=== PATIENT | female | born 1985 | race American Indian/Alaskan Native ===

== ENCOUNTER 2016-11-16 15:54 | Emergency (ER) | payer OTHER ==
[2016-11-16 16:21] VITALS: BMI 25.9
[2016-11-16 16:26] VITALS: BP 114/81; PULSE 64; RESP 19; TEMP 98.1; O2SAT 99
[2016-11-16] MEDS ORDERED: Naproxen 550 mg Tab PO STA (16:30)
--- NOTE | 2016-11-16 17:24 | ED PDOC ---
Arrival/HPI - General Chief Complaint: Trauma Time Seen by Provider: 11/16/16 16:30 Historian: Patient - History of Present Illness Narrative History of Present Illness (Text): 11/16/16 17:20 Patient reports injuring her right knee when she fell on November 10. She has been taking and applying [id number] pain reliever with no relief prompting ER visit. Otherwise: (-) "pop", (-) instability, (-) other injury. Has no history of prior knee injury. PMD Jade Past Medical History - Provider Review Nursing Documentation Reviewed: Yes - Infectious Disease Hx of Infectious Diseases: None - Tetanus Immunization Tetanus Immunization: Unknown - Past Medical History Past Medical History: No Previous - Cardiac Hx Cardiac Disorders: No Hx Hypertension: No - Pulmonary Hx Tuberculosis: No - Neurological HX Cerebrovascular Accident: No Hx Seizures: No - Hematological/Oncological Hx Cancer: No - Musculoskeletal/Rheumatological Hx Musculoskeletal Disorders: No - Genitourinary/Gynecological Hx Sexually Transmitted Diseases: No - Psychiatric Hx Psychophysiologic Disorder: No Hx Substance Use: No - Past Surgical History Past Surgical History: No Previous - Anesthesia Hx Anesthesia: No - Suicidal Assessment Feels Threatened In Home Enviroment: No Family/Social History - Physician Review Nursing Documentation Reviewed: Yes Family/Social History: No Known Family HX Smoking Status: Never Smoked Hx Alcohol Use: Yes Frequency of alcohol use: Socially Hx Substance Use: No Allergies/Home Meds Allergies/Adverse Reactions: Allergies Penicillins Allergy (Verified 11/16/16 16:20) RASH Home Medications: Home Meds Medication Instructions Recorded Confirmed Acetaminophen [Tylenol 325mg tab] 650 mg PO PRN PRN 11/16/16 11/16/16 Review of Systems - Review of Systems Constitutional: Normal. absent: Fatigue, Weight Change, Fevers Musculoskeletal: Normal, Arthralgias. absent: Back Pain, Neck Pain Skin: Normal. absent: Rash, Pruritis, Skin Lesions Physical Exam - Physical Exam Narrative Physical Exam (Text): 11/16/16 17:24 GENERAL APPEARANCE: Patient is awake, alert, oriented x 3, in no acute distress. SKIN: Warm, dry; (-) cyanosis. LOWER EXTREMITY: Mild tenderness of anterior right knee with no effusion. Able to extend actively to 0 degrees; (-) instability on valgus or varus stress. Drawer sign (-). (-) distal neurovascular deficit. 2 point discrimination. Hip, thigh, leg and ankle: (-) tenderness or limitation of motion. Vital Signs Temp Pulse Resp BP Pulse Ox 11/16/16 16:24 98.1 F 64 19 114/81 99 Medical Decision Making ED Course and Treatment: 11/16/16 17:25 31 yo F presents with right knee pain status post fall November 10. X-ray of right knee ordered. XR right knee: Soft tissue swelling noted, no fracture, no dislocation, as read by PA Patient advised that official radiology read of XR is still pending and will call the patient if there is any discrepancy within 24 hours. X-ray results discussed with the patient in great detail. Scotty wrap and knee immobilizer applied to the right knee. Patient instructed in crutch walking. Based on history, exam and diagnostic results plan will be for outpatient follow -up with PMD and orthopedic referral provided. Patient states she fully agrees with and understands discharge instructions. States that she agrees with the plan and disposition. Verbalized and repeated discharge instructions and plan. I have given the patient opportunity to ask any additional questions. Follow up with primary care physician or orthopedic referral provided in 1-2 days without fail. Return to the emergency room at any time for any new or worsening symptoms. - RAD Interpretation Radiology Orders: 11/16/16 16:30 KNEE RIGHT 2 VIEWS (AP & LAT) [RAD] Stat - Medication Orders Current Medication Orders: Discontinued Medications Naproxen (Anaprox Ds) 550 mg PO ONCE STA Stop: 11/16/16 16:31 Last Admin: 11/16/16 16:47 Dose: Not Given Non-Admin Reason: Patient Refused - PA / LOSS PREVENTION AGENT / Resident Statement /DO has reviewed & agrees with the documentation as recorded. Disposition/Present on Arrival - Present on Arrival Any Indicators Present on Arrival: No History of DVT/PE: No History of Uncontrolled Diabetes: No Urinary Catheter: No History of Decub. Ulcer: No History Surgical Site Infection Following: None - Disposition Have Diagnosis and Disposition been Completed?: Yes Diagnosis: Knee sprain Disposition: HOME/ ROUTINE Disposition Time: 17:15 Patient Plan: Discharge Condition: GOOD Discharge Instructions (ExitCare): Knee Sprain (ED) Print Language: LAO Additional Instructions: Thank you for letting us take care of you today. You were treated for right knee sprain. The emergency medical care you received today was directed at your acute symptoms. Rest, ice and elevate affected knee. Continue taking over-the- counter pain medications as needed for pain. It may take several days for your symptoms to resolve. Return to the Emergency Department if your symptoms worsen , do not improve, or if you have any other problems. Please contact your doctor in 2 days for re-evaluation and follow up / or call one of the physicians/clinics you have been referred to that are listed on the Patient Visit Information form that is included in your discharge packet. Bring any paperwork you were given at discharge with you along with any medications you are taking to your follow up visit. Our treatment cannot replace ongoing medical care by a primary care provider (PCP) outside of the emergency department. Thank you for allowing the [facility] team to be part of your care today. Referrals: Richard Hansen MD [Primary Care Provider] - Follow up with primary [facility] [place]] - Follow up with primary
--- NOTE | 2016-11-16 17:25 | RAD ---
PROCEDURE: Right Knee Radiographs. HISTORY: pain COMPARISON: None. FINDINGS: BONES: Normal. No fracture. JOINTS: Normal. No osteoarthritis. JOINT EFFUSION: None. OTHER FINDINGS: None. IMPRESSION: Normal radiographs of the right knee.
== END 2016-11-16 17:42 | disposition home or self-care (01) ==
LOC: ED 15:54
DX: S83.91XA Sprain of unspecified site of right knee, initial encounter (principal); W19.XXXA Unspecified fall, initial encounter; Y92.9 Unspecified place or not applicable

== ENCOUNTER 2017-08-03 16:49 | Emergency (ER) | payer MEDICAID, OTHER ==
[2017-08-03 17:03] VITALS: BMI 26.6
[2017-08-03 17:55] LABS: INFLUENZA A B NEGATIVE FOR FLU A/B (NEGATIVE)
--- NOTE | 2017-08-03 17:59 | ED PDOC ---
Arrival/HPI - General Chief Complaint: Flu-like Symptoms Time Seen by Provider: 08/03/17 17:04 Historian: Patient - History of Present Illness Narrative History of Present Illness (Text): 08/03/17 17:57 32yo female with no PMHx present with compliant of sore throat, cough and fever x 2days. states she had similar symptoms 2weeks ago and it resolved without medication and started gain 2days ago. Denies chest pain, SOb, diaphoresis, abdominal pain, sick contact, travel. Past Medical History - Provider Review Nursing Documentation Reviewed: Yes - Infectious Disease Hx of Infectious Diseases: None - Tetanus Immunization Tetanus Immunization: Unknown - Past Medical History Past Medical History: No Previous - Cardiac Hx Cardiac Disorders: No Hx Hypertension: No - Pulmonary Hx Tuberculosis: No - Neurological HX Cerebrovascular Accident: No Hx Seizures: No - Hematological/Oncological Hx Cancer: No - Musculoskeletal/Rheumatological Hx Musculoskeletal Disorders: No - Genitourinary/Gynecological Hx Sexually Transmitted Diseases: No - Psychiatric Hx Psychophysiologic Disorder: No Hx Substance Use: No - Past Surgical History Past Surgical History: No Previous - Anesthesia Hx Anesthesia: No - Suicidal Assessment Feels Threatened In Home Enviroment: No Family/Social History - Physician Review Nursing Documentation Reviewed: Yes Family/Social History: Unknown Family HX Smoking Status: Never Smoked Hx Alcohol Use: Yes Frequency of alcohol use: Socially Hx Substance Use: No Allergies/Home Meds Allergies/Adverse Reactions: Allergies Penicillins Allergy (Verified 11/16/16 16:20) RASH Home Medications: Home Meds Medication Instructions Recorded Confirmed Acetaminophen [Tylenol 325mg tab] 650 mg PO PRN PRN 11/16/16 11/16/16 Review of Systems - Physician Review All systems were reviewed & negative as marked: Yes - Review of Systems Constitutional: Fevers Eyes: Normal ENT: Sore Throat Respiratory: Cough Cardiovascular: Normal Gastrointestinal: Normal Genitourinary Female: Normal Musculoskeletal: Normal Skin: Normal Neurological: Normal Endocrine: Normal Hemo/Lymphatic: Normal Psychiatric: Normal Physical Exam Vital Signs Reviewed: Yes Vital Signs Temp Pulse Resp BP Pulse Ox 08/03/17 18:14 100.2 F H 89 20 108/74 100 08/03/17 16:49 100.7 F H 94 H 18 111/77 98 Temperature: Febrile Blood Pressure: Normal Pulse: Regular Respiratory Rate: Normal Appearance: Positive for: Well-Appearing, Non-Toxic, Comfortable Pain Distress: None Mental Status: Positive for: Alert and Oriented X 3 - Systems Exam Head: Present: Atraumatic, Normocephalic Pupils: Present: PERRL Extroacular Muscles: Present: EOMI Conjunctiva: Present: Normal Mouth: Present: Moist Mucous Membranes Pharnyx: Present: ERYTHEMA. No: EXUDATE, TONSILS ENLARGED, Peritonsilar Swelling, Uvular Deviation, Muffled/Hoarse Voice, Strider Neck: Present: Normal Range of Motion Respiratory/Chest: Present: Clear to Auscultation, Good Air Exchange. No: Respiratory Distress, Accessory Muscle Use, Wheezes, Decreased Breath Sounds, Rales, Retracting, Rhonchi, Tachypneic Cardiovascular: Present: Regular Rate and Rhythm, Normal S1, S2. No: Murmurs Abdomen: Present: Normal Bowel Sounds. No: Tenderness, Distention, Peritoneal Signs Back: Present: Normal Inspection Upper Extremity: Present: Normal Inspection. No: Cyanosis, Edema Lower Extremity: Present: Normal Inspection. No: Edema Neurological: Present: GCS=15, CN II-XII Intact, Speech Normal Skin: Present: Warm, Dry, Normal Color. No: Rashes Psychiatric: Present: Alert, Oriented x 3, Normal Insight, Normal Concentration Medical Decision Making ED Course and Treatment: 08/04/17 01:04 Pt in ED for stated history. Rapid Flu/strep was negative. Result was DW the pt. she was placed on Zpack. Referred to her PMd. Advised TRT ED for any new symptoms. - Lab Interpretations Lab Results: Lab Results 08/03/17 17:15: Influenza Typ A,B (EIA) Negative for flu a/b, Grp A Beta Strep Ag Negative - Medication Orders Current Medication Orders: Discontinued Medications Azithromycin (Zithromax) 500 mg PO STAT STA PRN Reason: Protocol Stop: 08/03/17 17:57 Last Admin: 08/03/17 18:05 Dose: 500 mg Benzonatate (Tessalon Perles) 100 mg PO ONCE STA Stop: 08/03/17 17:58 Last Admin: 08/03/17 18:06 Dose: 100 mg Ibuprofen (Motrin Tab) 600 mg PO STAT STA Stop: 08/03/17 17:05 Last Admin: 08/03/17 17:18 Dose: 600 mg MAR Pain/Vitals Document 08/03/17 17:18 SRE (Rec: 08/03/17 17:18 SRE [id number]) Pain Reassessment Is This A Pain ReAssessment? Yes Sleep Is patient sleeping during reassessment? No Presence of Pain Presence of Pain Yes Pain Scale Used Pain Scale Used Numeric Disposition/Present on Arrival - Present on Arrival Any Indicators Present on Arrival: No History of DVT/PE: No History of Uncontrolled Diabetes: No Urinary Catheter: No History of Decub. Ulcer: No History Surgical Site Infection Following: None - Disposition Have Diagnosis and Disposition been Completed?: Yes Diagnosis: URI (upper respiratory infection) Disposition: HOME/ ROUTINE Disposition Time: 18:05 Patient Plan: Discharge Condition: STABLE Discharge Instructions (ExitCare): Upper Respiratory Infection (ED) Additional Instructions: Follow up with your Doctor Drink plenty of fluid and rest Return to ED for any new or worsening symptoms Prescriptions: Azithromycin [Zithromax] 250 mg PO DAILY #4 tab Benzonatate [Tessalon Perles] 100 mg PO TID #20 sgl Referrals: Omar Gonzalez, [Primary Care Provider] - Follow up with primary Forms: [employer] (Luxembour[place])
[2017-08-03 18:16] VITALS: BP 108/74; PULSE 89; RESP 20; TEMP 100.2; O2SAT 100
== END 2017-08-03 18:16 | disposition home or self-care (01) ==
LOC: ED 16:49
DX: J06.9 Acute upper respiratory infection, unspecified (principal)

== ENCOUNTER 2017-12-16 15:07 | Emergency (ER) | payer MEDICAID, OTHER ==
[2017-12-16 15:08] VITALS: BMI 25.9
[2017-12-16 16:43] VITALS: TEMP 97.7
--- NOTE | 2017-12-16 17:51 | ED PDOC ---
Arrival/HPI - General Chief Complaint: Upper Extremity Problem/Injury Time Seen by Provider: 12/16/17 15:40 Historian: Patient - History of Present Illness Narrative History of Present Illness (Text): 12/16/17 17:48 Patient is a 32 year old female who presents to the Emergency department complaining of intermittent right wrist pain, which started several months ago. Patient reports that she hasn't previously injured her wrist, and mentions her pain is alleviated with Advil. Patient denies fevers, chills, cough, chest pain , dyspnea on exertion, headache, dizziness, or any other complaint. Time/Duration: > month Symptom Course: Intermittent Context: Home Past Medical History - Provider Review Nursing Documentation Reviewed: Yes - Infectious Disease Hx of Infectious Diseases: None - Tetanus Immunization Tetanus Immunization: Unknown - Past Medical History Past Medical History: No Previous - Cardiac Hx Cardiac Disorders: No Hx Hypertension: No - Pulmonary Hx Tuberculosis: No - Neurological HX Cerebrovascular Accident: No Hx Seizures: No - Hematological/Oncological Hx Cancer: No - Musculoskeletal/Rheumatological Hx Musculoskeletal Disorders: No - Genitourinary/Gynecological Hx Sexually Transmitted Diseases: No - Psychiatric Hx Psychophysiologic Disorder: No Hx Substance Use: No - Past Surgical History Past Surgical History: No Previous - Anesthesia Hx Anesthesia: No - Suicidal Assessment Feels Threatened In Home Enviroment: No Family/Social History - Physician Review Nursing Documentation Reviewed: Yes Family/Social History: No Known Family HX Smoking Status: Never Smoked Hx Alcohol Use: Yes Hx Substance Use: No Allergies/Home Meds Allergies/Adverse Reactions: Allergies Penicillins Allergy (Verified 12/16/17 16:40) RASH Home Medications: Home Meds Medication Instructions Recorded Confirmed No Known Home Med 12/16/17 12/16/17 Review of Systems - Physician Review All systems were reviewed & negative as marked: Yes - Review of Systems Constitutional: absent: Fevers, Night Sweats Respiratory: absent: Cough Cardiovascular: absent: Chest Pain, TORIBIO Musculoskeletal: Arthralgias (right wrist pain) Neurological: absent: Headache, Dizziness Physical Exam Vital Signs Reviewed: Yes Vital Signs Temp Pulse Resp BP Pulse Ox 12/16/17 16:40 97.7 F 65 18 114/76 97 Temperature: Afebrile Blood Pressure: Normal Pulse: Regular Respiratory Rate: Normal Appearance: Positive for: Well-Appearing Mental Status: Positive for: Alert and Oriented X 3 - Systems Exam Head: Present: Atraumatic, Normocephalic Pupils: Present: PERRL Extroacular Muscles: Present: EOMI Conjunctiva: Present: Normal Mouth: Present: Moist Mucous Membranes Neck: Present: Normal Range of Motion Respiratory/Chest: Present: Clear to Auscultation, Good Air Exchange. No: Respiratory Distress, Accessory Muscle Use Cardiovascular: Present: Regular Rate and Rhythm, Normal S1, S2. No: Murmurs Abdomen: No: Tenderness, Distention, Peritoneal Signs Back: Present: Normal Inspection Upper Extremity: Present: Other ((+)right wrist Phalen sign). No: Cyanosis, Edema Lower Extremity: Present: Normal Inspection. No: Edema Neurological: Present: GCS=15, CN II-XII Intact, Speech Normal Skin: Present: Warm, Dry, Normal Color. No: Rashes Psychiatric: Present: Alert, Oriented x 3, Normal Insight, Normal Concentration Medical Decision Making ED Course and Treatment: 12/16/17 17:53 Impression: Patient is a 32 year old female complaining of intermittent right wrist pain, which has been ongoing for the past several months. Differential Diagnosis included but are not limited to: Carpal tunnel syndrome. Plan: --Right hand X-ray -- Reassess and disposition Prior Visits: Notes and results from previous visits were reviewed. Progress Notes: - RAD Interpretation Radiology Orders: 12/16/17 17:12 HAND RIGHT 3 VIEWS [RAD] Stat - Scribe Statement The provider has reviewed the documentation as recorded by the Scribe Jay Issa Provider Scribe Attestation: All medical record entries made by the Scribe were at my direction and personally dictated by me. I have reviewed the chart and agree that the record accurately reflects my personal performance of the history, physical exam, medical decision making, and the department course for this patient. I have also personally directed, reviewed, and agree with the discharge instructions and disposition. Disposition/Present on Arrival - Present on Arrival Any Indicators Present on Arrival: No History of DVT/PE: No History of Uncontrolled Diabetes: No Urinary Catheter: No History of Decub. Ulcer: No History Surgical Site Infection Following: None - Disposition Have Diagnosis and Disposition been Completed?: Yes Diagnosis: Carpal tunnel syndrome on right Disposition: HOME/ ROUTINE Disposition Time: 18:27 Patient Plan: Discharge Condition: GOOD Discharge Instructions (ExitCare): Carpal Tunnel Syndrome (DC) Additional Instructions: You could ask your PMD to order the tests for carpal tunnel or you could just follow up with orthopedics. Dr Ledezma is contact center engineer. Referrals: Richard Hansen MD [Primary Care Provider] - Follow up with primary Evert Ledezma MD [Staff Provider] - Follow up with primary Forms: [employer] (Palestinian), WORK NOTE
[2017-12-16 19:29] VITALS: BP 120/70; PULSE 67; RESP 17; O2SAT 99
--- NOTE | 2017-12-17 08:16 | RAD ---
PROCEDURE: Right Hand Radiographs. HISTORY: ? Carpal Tunnel Syndrome COMPARISON: None. FINDINGS: BONES: Normal. No fracture. JOINTS: Normal. No osteoarthritic changes. SOFT TISSUES: Normal. OTHER FINDINGS: None. IMPRESSION: Normal right hand radiographs.
== END 2017-12-16 18:40 | disposition home or self-care (01) ==
LOC: ED 15:07
DX: G56.01 Carpal tunnel syndrome, right upper limb (principal)